=== PATIENT | female | born 1980 | race Caucasian/White ===

== ENCOUNTER 2018-03-29 03:21 | Emergency (ER) | payer SELFPAY ==
[~2018-03-29] VITALS: Ht 167.6 cm; Wt 61.2 kg
--- NOTE | 2018-03-29 03:57 | ED Headache ---
General Chief Complaint: General Problems/Pain Stated Complaint: POSS SINUS INFECTION,POSS UTI Nursing Triage Note: PT AMB TO ROOM #5 W/O DIFFICULTY. A&OX4. C/O HEADACHE. STATES "I THINK I HAVE A UTI, BECAUSE I CAN'T PEE WHEN I NEED TO PEE." REPORTS SHE WAS SEEN IN AN ED APPROX 1WK AGO WHERE SHE WAS DIAGNOSED WITH AN SINUS INFECTION AND PRESCRIBED AMOXICILLIN. PT REPORTS SHE IS TAKING HER MEDICATION PRESCRIBED. Nursing Sepsis Screen: No Definite Risk Source: patient, other Exam Limitations: no limitations History of Present Illness Date Seen by Provider: Mar 29, 2018 Time Seen by Provider: 03:44 Initial Comments Patient presents to the ER by private conveyance with 2 complaints of painful urination and for the past for 5 days she's had a left-sided headache that comes and goes and is bad enough that it prompted her to go to the ER 4 days ago in [place], [place]. She had a complete workup with labs and CT scan which they discovered she had what looked like a sinus infection. She's had a little bit of nasal discharge. She's not been drinking very much as she's had some nausea with her headache pain. She's been able to take the Lortab but she says she doesn't want to try taking ibuprofen as she's not sure she build keep it down. She received some Zofran from the ER and said that that helped was not sent home with any. She's been on amoxicillin that she says cost $80 so was probably Augmentin day number 4 now. Allergies and Home Medications Allergies Coded Allergies: No Known Drug Allergies (Unverified , 03/29/18) Patient Home Medication List Home Medication List Reviewed: Yes Review of Systems Review of Systems Constitutional: No chills, No diaphoresis, No fever, No malaise Eyes: Denies Blindness, Denies Blurred Vision; Photophobia Ears, Nose, Mouth, Throat: denies ear pain, denies ear discharge Respiratory: No cough, No short of breath Cardiovascular: No chest pain, No edema Gastrointestinal: No abdominal pain, No diarrhea, No nausea Genitourinary: No see HPI, No discharge; dysuria Past Jyjfmjj-Vmibvd-Wzjpxq Hx Patient Social History Alcohol Use: Denies Use Recreational Drug Use: No Smoking Status: Current Everyday Smoker Type Used: Cigarettes (1 ppd) Recent Foreign Travel: No Contact w/Someone Who Travel: No Recent Infectious Disease Expo: No Physical Exam Vital Signs Vital Signs - First Documented 03/29/18 03:30 Temp 98.4 Pulse 74 Resp 18 B/P (MAP) 138/95 (109) Pulse Ox 100 O2 Delivery Room Air Capillary Refill : Less Than 3 Seconds Height, Weight, BMI Height: 5'6.00" Weight: 135lbs. oz. 61.442849wj; BMI Method:Stated General Appearance: WD/WN, mild distress HEENT: PERRL/EOMI, pharynx normal, TM abnormal (R), TM abnormal (L) (bilateral clear mucoid effusion), other (mild nasal congestion without rhinorrhea) Neck: non-tender, full range of motion, normal inspection Cardiovascular: normal peripheral pulses, regular rate, rhythm, no edema Respiratory: chest non-tender, lungs clear, normal breath sounds, no respiratory distress, no accessory muscle use Psychiatric: alert, oriented x 3 Crainal Nerves: normal hearing, normal speech, PERRL Coordination/Gait: normal gait Skin: normal color, warm/dry Progress/Results/Core Measures Results/Orders Lab Results Laboratory Tests Test 03/29/18 04:30 Range/Units Urine Color YELLOW Urine Clarity CLEAR Urine pH 7 5-9 Urine Specific [place] 1.010 L 1.016-1.022 Urine Protein NEGATIVE NEGATIVE Urine Glucose (UA) NEGATIVE NEGATIVE Urine Ketones NEGATIVE NEGATIVE Urine Nitrite NEGATIVE NEGATIVE Urine Bilirubin NEGATIVE NEGATIVE Urine Urobilinogen NORMAL NORMAL MG/DL Urine Leukocyte Esterase 1+ H NEGATIVE Urine RBC (Auto) NEGATIVE NEGATIVE Urine RBC NONE /HPF Urine WBC 0-2 /HPF Urine Squamous Epithelial Cells 25-50 H /HPF Urine Crystals NONE /LPF Urine Bacteria NEGATIVE /HPF Urine Casts NONE /LPF Urine Mucus NEGATIVE /LPF Urine Yeast FEW H /HPF Urine Culture Indicated YES My Orders Orders - ALFRED SPANGLER Ondansetron Oral Dissolve Tab (Zofran (03/29/18 04:00) Ketorolac Injection (Toradol Injection) (03/29/18 04:00) Ua Culture If Indicated (03/29/18 03:51) Urine Culture (03/29/18 04:30) Medications Given in ED Current Medications Medications Dose Ordered Sig/Anneliese Route Start Time Stop Time Status Last Admin Dose Admin Ketorolac Tromethamine 30 mg ONCE ONCE IM 03/29/18 04:00 03/29/18 04:01 DC 03/29/18 03:59 30 MG Ondansetron HCl 4 mg ONCE ONCE PO 03/29/18 04:00 03/29/18 04:01 DC 03/29/18 03:58 4 MG Vital Signs/I&O 03/29/18 03:30 Temp 98.4 Pulse 74 Resp 18 B/P (MAP) 138/95 (109) Pulse Ox 100 O2 Delivery Room Air Blood Pressure Mean: 109 Progress Progress Note : Time: 03:56 Progress Note We'll obtain a bedside , urinalysis and encourage her to continue taking the Augmentin and we'll give her some Toradol and Zofran for her symptoms. We'll make sure she goes home with some Zofran. We have encouraged her to increase her fluid intake significantly. Departure Impression Primary Impression: Sinus headache Additional Impressions: Nausea Vaginal yeast infection Disposition: 01 HOME, SELF-CARE Condition: Improved Departure-Patient Inst. Decision time for Depature: 04:56 Referrals: NO,LOCAL PHYSICIAN (PCP/Family) Primary Care Physician Patient Instructions: LOCAL PHYSICIAN LIST, Sinus Headache (DC) Add. Discharge Instructions: Drink a lot of fluids. Sports drinks water or juice but no caffeine. Continue to take your antibiotics. Use the Zofran 1 tablet under the tongue as necessary every 6 hours for nausea or vomiting. Use Tylenol 1000 mg and/or ibuprofen 800 mg every 8 hours each as needed for headache pain. syruper the miconazole vaginal try she is 3, 5 or 7 day kit. Establish care with a primary care provider and follow up especially if your symptoms are not improving in the next week. All discharge instructions reviewed with patient and/or family. Voiced understanding. Scripts Ondansetron (Ondansetron Odt) 4 Mg Tab.rapdis 4 MG PO Q6H PRN for NAUSEA/VOMITING, #8 TAB 0 Refills Prov: ALFRED SPANGLER 03/29/18 Work/School Note: Work Release Form Date Seen in the Emergency Department: Mar 29, 2018 Return to Work: Mar 31, 2018 Restrictions: No Restrictions ALFRED SPANGLER Mar 29, 2018 03:57
[2018-03-29] MEDS ORDERED: KETOROLAC 30 MG/ML VIAL IM ONE (04:00)
[2018-03-29] MEDS ORDERED: ONDANSETRON 4 MG (ZOFRAN) ORAL DISSOLVE TAB PO ONE (04:00)
[2018-03-29 04:37] LABS: BILIRUBIN,URINE NEGATIVE (NEGATIVE); CLARITY,URINE CLEAR; COLOR,URINE YELLOW; GLUCOSE, URINE (UA) NEGATIVE (NEGATIVE); KETONES,URINE NEGATIVE (NEGATIVE); LEUKOCYTE ESTERASE ,URINE 1+ (NEGATIVE); NITRITE,URINE NEGATIVE (NEGATIVE); PH,URINE 7 (5-9); PROTEIN,URINE NEGATIVE (NEGATIVE); UROBILINOGEN,URINE NORMAL (NORMAL)
[2018-03-29 04:46] LABS: BACTERIA,URINE NEGATIVE /HPF; SQUAMOUS EPITHELIAL CELL,UR 25-50 /HPF; WBC,URINE 0-2 /HPF
[2018-03-29 04:47] LABS: YEAST,URINE FEW /HPF
[2018-03-29] MEDS ORDERED: ONDA4TAB11 PO (04:59)
[2018-03-29 05:04] VITALS: BP 138/95
== END 2018-03-29 05:05 | disposition home or self-care (01) ==
LOC: ER 03:26
DX: R51 Headache (principal); B37.3 Candidiasis of vulva and vagina; F17.210 Nicotine dependence, cigarettes, uncomplicated
CPT/HCPCS: 81000; 87088; 99283

== ENCOUNTER 2018-04-17 08:31 | Emergency (ER) | payer SELFPAY ==
[~2018-04-17] VITALS: Ht 152.4 cm; Wt 59.0 kg
[~2018-04-17 08:31] MED LIST: ONDA4TAB11 PO
[2018-04-17] MEDS ORDERED: KETOROLAC 30 MG/ML VIAL IVP STA (11:09)
[2018-04-17] MEDS ORDERED: NS IV 1000 ML 1,000 ML IV ONE (11:09)
[2018-04-17] MEDS ORDERED: ONDANSETRON 4 MG/2 ML (SDV) Z0FRAN IVP ONE (11:15)
[2018-04-17] MEDS ORDERED: ONDANSETRON 4 MG (ZOFRAN) ORAL DISSOLVE TAB SL STA (11:40)
[2018-04-17] MEDS ORDERED: KETOROLAC 60 MG/2 ML VIAL IM STA (11:40)
--- NOTE | 2018-04-17 12:01 | ED GU-Female ---
General Chief Complaint: Abdominal/GI Problems Stated Complaint: HEADACHE,VOMITING Nursing Triage Note: PT AMB TO TRIAGE W/O DIFFICULTY. A&X4. C/O HEADAHCE, NAUSEA, VOMITING, FEVER, BODY ACHES, AND GENERAL MALAISE FOR APPROX 5 DAYS. REPORTS SHE BELIEVES SHE HAS A UTI DT BURNING UPON URINATION. Nursing Sepsis Screen: No Definite Risk Source: patient, other (significant other) Exam Limitations: no limitations History of Present Illness Date Seen by Provider: Apr 17, 2018 Time Seen by Provider: 11:25 Initial Comments 38-year-old female patient presents with complaints of headache, nausea, vomiting, fever, generalized body aches, malaise for 5 days. Patient denies taking her temperature, states she felt like she was "hot". Patient reports being seen in the emergency department at [facility] 3 weeks ago and was diagnosed with a UTI and yeast infection. Patient states she did not take the medicine for the yeast infection for approximately one to 2 weeks after being seen. Patient does report a lengthy history for IV drug use. Timing/Duration: getting worse, other (5 day onset) Severity/Quality: aching, burning, cramping Location: urethral Radiation: suprapubic Activities at Onset: none Prior Genitourinary Problems: similar symptoms Sexual [place] History: less than 2 months ago, single partner Modifying Factors: Worsens With Eating, Worsens With Urinating Allergies and Home Medications Allergies Coded Allergies: No Known Drug Allergies (Unverified , 03/29/18) Home Medications Cephalexin 500 Mg Capsule, 500 MG PO TID Prescribed by: THANH ESCALERA on 04/17/18 141 Ondansetron 4 Mg Tab.rapdis, 4 MG PO Q6H PRN for NAUSEA/VOMITING Prescribed by: ALFRED SPANGLER on 03/29/18 0459 Phenazopyridine HCl 100 Mg Tablet, 1-2 TAB PO TID PRN for pain Prescribed by: THANH ESCALERA on 04/17/18 141 Promethazine HCl 25 Mg Supp.rect, 25 MG RC QID Prescribed by: THANH ESCALERA on 04/17/18 141 Patient Home Medication List Home Medication List Reviewed: Yes Review of Systems Review of Systems Constitutional: see HPI, chills, fever (subjective fever), malaise EENTM: no symptoms reported Respiratory: No cough, No phlegm, No short of breath, No wheezing Cardiovascular: No chest pain, No palpitations Gastrointestinal: see HPI, abdominal pain (suprapubic abdominal pain); No constipation, No diarrhea; loss of appetite, nausea, vomiting Genitourinary: see HPI, burning, dysuria, frequency, pain (suprapubic abdominal pain), other ((+) hesitency. Significant other reports patient will fill like she has to go the bathroom "really bad" and only be able to urinate a small amount.) : No Musculoskeletal: see HPI, other (generalized body aches) Skin: no symptoms reported Psychiatric/Neurological: See HPI, Headache All Other Systemes Reviewed Negative Unless Noted: Yes (Negative excepted noted.) Past Dtxplmm-Dmxvjd-Cmoodn Hx Past Med/Social Hx: Reviewed Nursing Past Med/Soc Hx Patient Social History Alcohol Use: Denies Use Recreational Drug Use: No (HX: IV METH ) Smoking Status: Current Everyday Smoker Type Used: Cigarettes 2nd Hand Smoke Exposure: Yes Recent Foreign Travel: No Contact w/Someone Who Travel: No Recent Infectious Disease Expo: No Recent Hopitalizations: No Seasonal Allergies Seasonal Allergies: No Past Medical History Surgeries: Yes Tubal Ligation Respiratory: No Cardiac: No Neurological: No : No Last Menstrual Period: Apr 14, 2018 Genitourinary: No Gastrointestinal: No Musculoskeletal: No Endocrine: No HEENT: No Cancer: No Psychosocial: No Integumentary: No Blood Disorders: No Family Medical History Reviewed Nursing Family Hx No Pertinent Family Hx Physical Exam Vital Signs Vital Signs - First Documented 04/17/18 04/17/18 10:37 14:28 Temp 98.1 Pulse 87 Resp 18 B/P (MAP) 112/74 (87) Pulse Ox 100 O2 Delivery Room Air Capillary Refill : Less Than 3 Seconds Height, Weight, BMI Height: 5'0" Weight: 130lbs. oz. 58.479718oz; BMI Method:Stated General Appearance: WD/WN, no apparent distress HEENT: other (patient refuses to move the pillow that she has covering her face.) Neck: non-tender, supple, normal inspection Cardiovascular: normal peripheral pulses, regular rate, rhythm, no edema, no murmur Respiratory: lungs clear, normal breath sounds, no respiratory distress, no accessory muscle use Gastrointestinal: normal bowel sounds, non tender (unable to reproduce tenderness on exam), soft, no organomegaly; No distended, No guarding, No rebound Back: normal inspection, no CVA tenderness Extremities: no pedal edema, normal capillary refill Neurologic/Psychiatric: alert, normal mood/affect, oriented x 3 (oriented to person, place, situation, and time. ) Skin: normal color, warm/dry, other (numerous puncture sites, scarring, and non -acute ecchymosis overlying the veins of the BUE consistent with h/o IV drug use.) Progress/Results/Core Measures Suspected Sepsis Recent Fever Within 48 Hours: Yes Infection Criteria Present: Suspected New Infection New/Unexplained Altered Menta: No Sepsis Screen: No Definite Risk SIRS Temperature: Pulse: 87 Respiratory Rate: 18 Blood Pressure 112 /74 Mean: 87 Results/Orders Lab Results Laboratory Tests Test 04/17/18 12:49 Range/Units Urine Color YELLOW Urine Clarity VERY CLOUDY H Urine pH 7 5-9 Urine Specific [place] 1.010 L 1.016-1.022 Urine Protein 2+ H NEGATIVE Urine Glucose (UA) NEGATIVE NEGATIVE Urine Ketones NEGATIVE NEGATIVE Urine Nitrite NEGATIVE NEGATIVE Urine Bilirubin NEGATIVE NEGATIVE Urine Urobilinogen NORMAL NORMAL MG/DL Urine Leukocyte Esterase 3+ H NEGATIVE Urine RBC (Auto) 5+ H NEGATIVE Urine RBC NONE /HPF Urine WBC TNTC H /HPF Urine Crystals PRESENT H /LPF Urine Amorphous Sediment MOD LAUREN URATES H /LPF Urine Bacteria LARGE H /HPF Urine Casts NONE /LPF Urine Mucus NEGATIVE /LPF Urine Culture Indicated YES Urine Opiates Screen NEGATIVE NEGATIVE Urine Oxycodone Screen NEGATIVE NEGATIVE Urine Methadone Screen NEGATIVE NEGATIVE Urine Propoxyphene Screen NEGATIVE NEGATIVE Urine Barbiturates Screen NEGATIVE NEGATIVE Ur Tricyclic Antidepressants Screen NEGATIVE NEGATIVE Urine Phencyclidine Screen NEGATIVE NEGATIVE Urine Amphetamines Screen POSITIVE H NEGATIVE Urine Methamphetamines Screen NEGATIVE NEGATIVE Urine Benzodiazepines Screen NEGATIVE NEGATIVE Urine Cocaine Screen NEGATIVE NEGATIVE Urine Cannabinoids Screen POSITIVE H NEGATIVE Micro Results Microbiology 04/17/18 Influenza Types A,B Antigen ([place]) - Final, Complete My Orders Orders - THANH ESCALERA Saline Lock/Iv-Start (04/17/18 11:09) Urine Bedside (04/17/18 11:09) Drug Screen Stat (Urine) (04/17/18 11:09) Ua Culture If Indicated (04/17/18 11:09) Influenza A And B Antigens (04/17/18 11:09) Ondansetron Injection (Zofran Injectio (04/17/18 11:15) Ketorolac Injection (Toradol Injection) (04/17/18 11:09) Ns Iv 1000 Ml (Sodium Chloride 0.9%) (04/17/18 11:09) Ketorolac Injection (Toradol Injection) (04/17/18 11:40) Ondansetron Oral Dissolve Tab (Zofran (04/17/18 11:40) Urine Culture (04/17/18 12:49) Ceftriaxone For Iv Use (Rocephin For I (04/17/18 13:45) Lidocaine 1% Inj 20 Ml (Xylocaine 1% Inj (04/17/18 13:45) Acetaminophen Tablet (Tylenol Tablet) (04/17/18 13:32) Medications Given in ED Current Medications Medications Dose Ordered Sig/Anneliese Route Start Time Stop Time Status Last Admin Dose Admin Ceftriaxone Sodium 1,000 mg ONCE ONCE IM 04/17/18 13:45 04/17/18 13:46 DC 04/17/18 13:48 1,000 MG Lidocaine HCl 2.1 ml ONCE ONCE INJ 04/17/18 13:45 04/17/18 13:46 DC 04/17/18 13:48 2.1 ML Vital Signs/I&O 04/17/18 04/17/18 10:37 14:28 Temp 98.1 Pulse 87 77 Resp 18 18 B/P (MAP) 112/74 (87) 106/65 (79) Pulse Ox 100 100 O2 Delivery Room Air Room Air Capillary Refill : Less Than 3 Seconds Blood Pressure Mean: 87 Departure Communication (Admissions) Patient seen and evaluated. Due to patient's history of methamphetamine IV use , we are unable to establish an IV. This was discussed with the patient. Patient does not want to be stuck anymore for an IV access. Will give patient a milligrams Zofran sublingual, Toradol 60 mg IM, and check urinalysis. 1400 Lab findings discussed with the patient. Patient reports overall feeling much better. We will plan for discharge to home after giving patient one gram Rocephin IM and Tylenol extra strength 1000 mg 1 dose orally. Patient is to follow-up with the primary care provider of her choice for recheck as an outpatient and call Thursday morning to schedule a follow-up appointment. Impression Primary Impression: Urinary tract infection Disposition: HOME, SELF-CARE Condition: Improved Departure-Patient Inst. Decision time for Depature: 14:10 Referrals: NO,LOCAL PHYSICIAN (PCP/Family) Primary Care Physician Patient Instructions: Urinary Tract Infection, Adult (DC) Add. Discharge Instructions: All discharge instructions reviewed with patient and/or family. Voiced understanding. Medications as directed. Drink plenty of fluids. Follow-up with the practitioner of your choice for recheck this week, call Thursday for an appointment time. Return to the emergency department for worsened symptoms or any other concerns. Scripts Promethazine HCl (Phenergan) 25 Mg Supp.rect 25 MG RC QID, #10 SUPP.RECT 0 Refills Prov: THANH ESCALERA 04/17/18 Phenazopyridine HCl (Pyridium) 100 Mg Tablet 1-2 TAB PO TID PRN for pain, #14 TAB 1 Refill Prov: THANH ESCALERA 04/17/18 Cephalexin (Cephalexin) 500 Mg Capsule 500 MG PO TID, #21 CAP 0 Refills Prov: THANH ESCALERA 04/17/18 Work/School Note: Local Medical Staff Listing THANH ESCALERA Apr 17, 2018 12:01
[2018-04-17 12:58] LABS: BILIRUBIN,URINE NEGATIVE (NEGATIVE); CLARITY,URINE VERY CLOUDY; COLOR,URINE YELLOW; GLUCOSE, URINE (UA) NEGATIVE (NEGATIVE); KETONES,URINE NEGATIVE (NEGATIVE); LEUKOCYTE ESTERASE ,URINE 3+ (NEGATIVE); NITRITE,URINE NEGATIVE (NEGATIVE); PH,URINE 7 (5-9); PROTEIN,URINE 2+ (NEGATIVE); UROBILINOGEN,URINE NORMAL (NORMAL)
[2018-04-17 13:07] LABS: BACTERIA,URINE LARGE /HPF; WBC,URINE TNTC /HPF
[2018-04-17 13:08] LABS: AMORPHOUS SEDIMENT,UR MOD AMOR URATES /LPF
[2018-04-17 13:23] LABS: AMPHETAMINE SCREEN, URINE POSITIVE (NEGATIVE); BARBITURATE SCREEN URINE NEGATIVE (NEGATIVE); BENZODIAZEPINES SCREEN URINE NEGATIVE (NEGATIVE); CANNABINOID SCREEN, URINE POSITIVE (NEGATIVE); COCAINE SCREEN URINE NEGATIVE (NEGATIVE); METHADONE STAT NEGATIVE (NEGATIVE); METHAMPHETAMINE SCREEN URINE S NEGATIVE (NEGATIVE); OPIATE SCREEN URINE NEGATIVE (NEGATIVE); OXYCODONE STAT NEGATIVE (NEGATIVE); PROPOXYPHENE STAT NEGATIVE (NEGATIVE); TRICYCLIC ANTIDEPRESSANTS SCRE NEGATIVE (NEGATIVE)
[2018-04-17] MEDS ORDERED: ACETAMINOPHEN 500 MG TAB (TYLENOL) PO STA (13:32)
[2018-04-17] MEDS ORDERED: cefTRIAXone 1 GM/10 ML for IV (ROCEPHIN) IM ONE (13:45)
[2018-04-17] MEDS ORDERED: LIDOCAINE 1% INJ 20 ML 20 ML VIAL INJ ONE (13:45)
[2018-04-17] MEDS ORDERED: PHEN-639 PO (14:14)
[2018-04-17] MEDS ORDERED: CEPH500C PO (14:14)
[2018-04-17] MEDS ORDERED: PROM25SU43 RC (14:14)
[2018-04-17 14:28] VITALS: BP 106/65
== END 2018-04-17 14:30 | disposition home or self-care (01) ==
LOC: EDUNIT# 08:31 → ER 08:32
DX: N39.0 Urinary tract infection, site not specified (principal); F17.210 Nicotine dependence, cigarettes, uncomplicated; Z98.51 Tubal ligation status
CPT/HCPCS: 80306; 81000; 84703; 87077; 87088; 87186; 87804

== ENCOUNTER 2020-01-12 13:06 | Emergency (ER) | payer SELFPAY ==
[~2020-01-12] VITALS: Ht 152.4 cm; Wt 61.2 kg
[~2020-01-12 13:06] MED LIST changes: +CEPH500C PO; +PHEN-639 PO; +PROM25SU43 RC
[2020-01-12] MEDS ORDERED: KETOROLAC 30 MG/ML VIAL IVP STA (13:17)
[2020-01-12] MEDS ORDERED: LACTATED RINGERS 1,000 ML IV ONE (13:17)
--- NOTE | 2020-01-12 13:23 | ED Back Pain ---
General Stated Complaint: LOWER BACK PAIN Source of Information: Patient History of Present Illness Date Seen by Provider: Jan 12, 2020 Time Seen by Provider: 13:13 Initial Comments PT ARRIVES VIA POV FROM HOME C/O RIGHT FLANK PAIN, RADIATING TO RIGHT MID AND LOWER ABDOMEN--BEGAN A FEW DAYS AGO HAS HISTORY OF UTI'S/KIDNEY INFECTIONS AND KIDNEY STONES, AND THIS FEELS THE SAME NO FEVER NO NAUSEA/VOMITING NO PROBLEMS URINATING HAS NOT TAKEN ANYTHING FOR PAIN LMP--1 1/2 WEEKS AGO. NORMAL. S/P BTL Other Comments PCP: NONE Allergies and Home Medications Allergies Coded Allergies: No Known Drug Allergies (Unverified , 03/29/18) Home Medications Cephalexin 500 Mg Capsule, 500 MG PO TID Prescribed by: THANH ESCALERA on 04/17/18 141 Hyoscyamine Sulfate 0.125 Mg Tab.subl, 0.25 MG SL Q4H Prescribed by: KAUSHIK GONZALEZ on 01/12/20 141 Ondansetron 4 Mg Tab.rapdis, 4 MG PO Q6H PRN for NAUSEA/VOMITING Prescribed by: ALFRED SPANGLER on 03/29/18 0459 Ondansetron 4 Mg Tab.rapdis, 4 MG PO Q4H Prescribed by: KAUSHIK GONZALEZ on 01/12/20 1415 Pantoprazole Sodium 40 Mg Tablet.dr, 40 MG PO DAILY Prescribed by: KAUSHIK GONZALEZ on 01/12/20 141 Phenazopyridine HCl 100 Mg Tablet, 1-2 TAB PO TID PRN for pain Prescribed by: THANH ESCALERA on 04/17/18 141 Promethazine HCl 25 Mg Supp.rect, 25 MG RC QID Prescribed by: THANH ESCALERA on 04/17/18 141 Tramadol HCl 50 Mg Tablet, 50 MG PO Q4H Prescribed by: KAUSHIK GONZALEZ on 01/12/20 1415 Patient Home Medication List Home Medication List Reviewed: Yes Review of Systems Constitutional: no symptoms reported Respiratory: no symptoms reported Cardiovascular: no symptoms reported Gastrointestinal: see HPI, abdominal pain; No nausea, No vomiting Genitourinary: no symptoms reported LMP: Jan 02, 2020 Control/STD Prophylaxis: Other (BTL) Musculoskeletal: see HPI, back pain Skin: no symptoms reported Psychiatric/Neurological: No Symptoms Reported Past Nmlmxal-Pnzuaz-Cllygr Hx Past Med/Social Hx: Reviewed and Corrections made Patient Social History Alcohol Use: Denies Use Recreational Drug Use: Yes (+IV METH USE) Drug of Choice: + ADRIENNE METH USE Smoking Status: Current Everyday Smoker (1 PPD) Type Used: Cigarettes (1 PDD) 2nd Hand Smoke Exposure: Yes Recent Foreign Travel: No Contact w/Someone Who Travel: No Recent Hopitalizations: No Seasonal Allergies Seasonal Allergies: No Past Medical History Surgeries: Yes Tubal Ligation Respiratory: No Cardiac: No Neurological: No : No 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 oz. 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 Skin: Normal Color, Warm/Dry; No Rash; Tattoos/Piercings (EXTENSIVE TATTOOS) Progress/Results/Core Measures Results/Orders Lab Results Laboratory Tests Test 01/12/20 13:24 01/12/20 13:56 Range/Units Urine Color YELLOW Urine Clarity SL CLOUDY Urine pH 6.0 5-9 Urine Specific Williams >=1.030 1.016-1.022 Urine Protein NEGATIVE NEGATIVE Urine Glucose (UA) NEGATIVE NEGATIVE Urine Ketones NEGATIVE NEGATIVE Urine Nitrite NEGATIVE NEGATIVE Urine Bilirubin NEGATIVE NEGATIVE Urine Urobilinogen 0.2 < = 1.0 MG/DL Urine Leukocyte Esterase NEGATIVE NEGATIVE Urine RBC (Auto) NEGATIVE NEGATIVE Urine RBC RARE /HPF Urine WBC 0-2 /HPF Urine Squamous Epithelial Cells 10-25 H /HPF Urine Crystals PRESENT H /LPF Urine Amorphous Sediment FEW LAUREN URATES H /LPF Urine Bacteria FEW H /HPF Urine Casts NONE /LPF Urine Mucus NEGATIVE /LPF Urine Culture Indicated NO Urine Opiates Screen NEGATIVE NEGATIVE Urine Oxycodone Screen NEGATIVE NEGATIVE Urine Methadone Screen NEGATIVE NEGATIVE Urine Propoxyphene Screen NEGATIVE NEGATIVE Urine Barbiturates Screen NEGATIVE NEGATIVE Ur Tricyclic Antidepressants Screen NEGATIVE NEGATIVE Urine Phencyclidine Screen NEGATIVE NEGATIVE Urine Amphetamines Screen POSITIVE H NEGATIVE Urine Methamphetamines Screen POSITIVE H NEGATIVE Urine Benzodiazepines Screen POSITIVE H NEGATIVE Urine Cocaine Screen NEGATIVE NEGATIVE Urine Cannabinoids Screen POSITIVE H NEGATIVE White Blood Count 11.0 4.3-11.0 10^3/uL Red Blood Count 4.26 L 4.35-5.85 10^6/uL Hemoglobin 11.8 11.5-16.0 G/DL Hematocrit 37 35-52 % Mean Corpuscular Volume 88 80-99 FL Mean Corpuscular Hemoglobin 28 25-34 PG Mean Corpuscular Hemoglobin Concent 32 32-36 G/DL Red Cell Distribution Width 15.9 H 10.0-14.5 % Platelet Count 548 H 130-400 10^3/uL Mean Platelet Volume 8.7 7.4-10.4 FL Neutrophils (%) (Auto) 70 42-75 % Lymphocytes (%) (Auto) 23 12-44 % Monocytes (%) (Auto) 5 0-12 % Eosinophils (%) (Auto) 2 0-10 % Basophils (%) (Auto) 1 0-10 % Neutrophils # (Auto) 7.6 1.8-7.8 X 10^3 Lymphocytes # (Auto) 2.5 1.0-4.0 X 10^3 Monocytes # (Auto) 0.5 0.0-1.0 X 10^3 Eosinophils # (Auto) 0.2 0.0-0.3 10^3/uL Basophils # (Auto) 0.1 0.0-0.1 10^3/uL Sodium Level 140 135-145 MMOL/L Potassium Level 3.9 3.6-5.0 MMOL/L Chloride Level 105 98-107 MMOL/L Carbon Dioxide Level 27 21-32 MMOL/L Anion Gap 8 5-14 MMOL/L Blood Urea Nitrogen 20 H 7-18 MG/DL Creatinine 0.78 0.60-1.30 MG/DL Estimat Glomerular Filtration Rate > 60 BUN/Creatinine Ratio 26 Glucose Level 78 70-105 MG/DL Calcium Level 9.5 8.5-10.1 MG/DL Corrected Calcium 9.4 8.5-10.1 MG/DL Total Bilirubin 0.2 0.1-1.0 MG/DL Aspartate Amino Transf (AST/SGOT) 16 5-34 U/L Alanine Aminotransferase (ALT/SGPT) 7 0-55 U/L Alkaline Phosphatase 76 40-136 U/L Total Protein 7.5 6.4-8.2 GM/DL Albumin 4.1 3.2-4.5 GM/DL Serum Test, Qualitative NEGATIVE NEGATIVE My Orders Orders - KAUSHIK GONZALEZ DO Ed Iv/Invasive Line Start (01/12/20 13:17) Ct Abd/Pelvis Wo(Kidney Stone) (01/12/20 13:17) Abdomen/Kub 1view (01/12/20 13:17) Cbc With Automated Diff (01/12/20 13:17) Comprehensive Metabolic Panel (01/12/20 13:17) Drug Screen Stat (Urine) (01/12/20 13:17) Hcg,Qualitative Serum (01/12/20 13:17) Ua Culture If Indicated (01/12/20 13:17) Ed Iv/Invasive Line Start (01/12/20 13:17) Lactated Ringers (Lr 1000 Ml Iv Solution (01/12/20 13:17) Ketorolac Injection (Toradol Injection) (01/12/20 13:17) Medications Given in ED Current Medications Medications Dose Ordered Sig/Anneliese Route Start Time Stop Time Status Last Admin Dose Admin Lactated Ringer's 1,000 ml @ 0 mls/hr Q0M ONCE IV 01/12/20 13:17 01/12/20 13:19 DC 01/12/20 13:55 1,000 MLS/HR Vital Signs/I&O 01/12/20 01/12/20 13:10 14:17 Temp 36.6 Pulse 86 73 Resp 16 14 B/P (MAP) 139/92 (108) 127/79 (95) Pulse Ox 100 100 O2 Delivery Room Air Room Air Progress Progress Note : Progress Note GIVEN IV FLUIDS AND TORADOL--PAIN RELIEVED AND PT SLEPT FOR REMAINDER OF ER STAY Diagnostic Imaging Comments CT ABDOMEN/PELVIS--PER RADIOLOGIST REPORT AT 1403 FINDINGS: There are stones within the gallbladder lumen. The gallbladder is nondistended and showed no pericholecystic edema. The bile ducts are not dilated. Spleen, adrenals, and pancreas are nonacute. There are no radiopaque urinary tract stones and there is no hydroureteronephrosis. There is no bowel obstruction. No pericolonic or perienteric edema. While the appendix itself cannot convincingly identified, there is no right lower quadrant or pericecal inflammation to suggest underlying appendicitis. The uterus, adnexa, and urinary bladder appeared normal. No abscess, hematoma, or acute fluid collection. No aneurysm, adenopathy, or mass. IMPRESSION: Cholelithiasis, otherwise negative CT abdomen and pelvis ABDOMEN XRAY--PER RADIOLOGIST REPORT AT 1413 .FINDINGS: The bowel gas pattern appeared unremarkable. There is perhaps borderline elevated colonic fecal load in the appropriate scenario mild degree of constipation could not be excluded. This is not grossly pathologic. No suspicious radiopacities. No radiographic findings of organomegaly or mass effect. IMPRESSION: Borderline constipation. No convincing evidence of abnormality. Reviewed: Reviewed by Me Departure Impression Primary Impression: Cholelithiasis Additional Impression: Illicit drug use Disposition: HOME, SELF-CARE Condition: Improved Departure-Patient Inst. Referrals: EMANUEL AMES,LOCAL PHYSICIAN (PCP) Primary Care Physician Patient Instructions: Gallstones (DC) Add. Discharge Instructions: LOTS OF CLEAR LIQUIDS BLAND DIET--NO SPICY, GREASY/HIGH FAT OR ACIDIC FOOD OR DRINKS FOLLOW UP WITH DR. AMES OR SURGEON OF CHOICE IN THE NEXT WEEK FOR FURTHER CARE, RETURN TO ER IF WORSE Scripts Tramadol HCl (Ultram) 50 Mg Tablet 50 MG PO Q4H for Pain, #20 TAB Prov: CARLOSKAUSHIK K DO 01/12/20 Ondansetron (Ondansetron Odt) 4 Mg Tab.rapdis 4 MG PO Q4H for Nausea/Vomiting, #10 TAB Prov: CARLOSKAUSHIK K DO 01/12/20 Hyoscyamine Sulfate (Levsin-Sl) 0.125 Mg Tab.subl 0.25 MG SL Q4H, #20 TAB Prov: CARLOSKAUSHIK K DO 01/12/20 Pantoprazole Sodium (Protonix) 40 Mg Tablet. 40 MG PO DAILY, #15 TAB Prov: KAUSHIK GONZALEZ DO 01/12/20 KAUSHIK GONZALEZ DO Jan 12, 2020 13:23
[2020-01-12 13:36] LABS: BILIRUBIN,URINE NEGATIVE (NEGATIVE); CLARITY,URINE SL CLOUDY; COLOR,URINE YELLOW; GLUCOSE, URINE (UA) NEGATIVE (NEGATIVE); KETONES,URINE NEGATIVE (NEGATIVE); LEUKOCYTE ESTERASE ,URINE NEGATIVE (NEGATIVE); NITRITE,URINE NEGATIVE (NEGATIVE); PROTEIN,URINE NEGATIVE (NEGATIVE)
--- NOTE | 2020-01-12 13:57 | Diagnostic Imaging Report ---
PROCEDURE: CT urinary tract, rule out kidney stone. TECHNIQUE: Multiple contiguous axial images were obtained through the abdomen and pelvis without the use of intravenous contrast. Auto Exposure Controls were utilized during the CT exam to meet ALARA standards for radiation dose reduction. INDICATION: Right-sided pain of three days' duration. FINDINGS: There are stones within the gallbladder lumen. The gallbladder is nondistended and showed no pericholecystic edema. The bile ducts are not dilated. Spleen, adrenals, and pancreas are nonacute. There are no radiopaque urinary tract stones and there is no hydroureteronephrosis. There is no bowel obstruction. No pericolonic or perienteric edema. While the appendix itself cannot convincingly identified, there is no right lower quadrant or pericecal inflammation to suggest underlying appendicitis. The uterus, adnexa, and urinary bladder appeared normal. No abscess, hematoma, or acute fluid collection. No aneurysm, adenopathy, or mass. IMPRESSION: Cholelithiasis, otherwise negative CT abdomen and pelvis. Dictated by: Dictated on workstation # [id number]
[2020-01-12 14:03] LABS: BASOPHILS # (AUTO) 0.1 10^3/uL (0.0-0.1); BASOPHILS % (AUTO) 1 % (0-10); EOSINOPHILS # (AUTO) 0.2 10^3/uL (0.0-0.3); EOSINOPHILS % (AUTO) 2 % (0-10); HEMATOCRIT 37 % (35-52); HEMOGLOBIN 11.8 G/DL (11.5-16.0); LYMPHOCYTES # (AUTO) 2.5 X 10^3 (1.0-4.0); LYMPHOCYTES % (AUTO) 23 % (12-44); MEAN CORPUSCULAR HEMOGLOBIN 28 PG (25-34); MEAN CORPUSCULAR HGB CONC 32 G/DL (32-36); MEAN CORPUSCULAR VOLUME 88 FL (80-99); MEAN PLATELET VOLUME 8.7 FL (7.4-10.4); MONOCYTES # (AUTO) 0.5 X 10^3 (0.0-1.0); MONOCYTES % (AUTO) 5 % (0-12); NEUTROPHILS # (AUTO) 7.6 X 10^3 (1.8-7.8); NEUTROPHILS % (AUTO) 70 % (42-75); PLATELET COUNT 548 10^3/uL (130-400)
[2020-01-12 14:05] LABS: AMORPHOUS SEDIMENT,UR FEW AMOR URATES /LPF; BACTERIA,URINE FEW /HPF; RBC,URINE RARE /HPF; WBC,URINE 0-2 /HPF
--- NOTE | 2020-01-12 14:06 | Diagnostic Imaging Report ---
INDICATION: Abdominal pain\ FINDINGS: The bowel gas pattern appeared unremarkable. There is perhaps borderline elevated colonic fecal load in the appropriate scenario mild degree of constipation could not be excluded. This is not grossly pathologic. No suspicious radiopacities. No radiographic findings of organomegaly or mass effect. IMPRESSION: Borderline constipation. No convincing evidence of abnormality. Dictated by: Dictated on workstation # [id number]
[2020-01-12 14:08] LABS: AMPHETAMINE SCREEN, URINE POSITIVE (NEGATIVE); BARBITURATE SCREEN URINE NEGATIVE (NEGATIVE); BENZODIAZEPINES SCREEN URINE POSITIVE (NEGATIVE); CANNABINOID SCREEN, URINE POSITIVE (NEGATIVE); COCAINE SCREEN URINE NEGATIVE (NEGATIVE); METHADONE STAT NEGATIVE (NEGATIVE); METHAMPHETAMINE SCREEN URINE S POSITIVE (NEGATIVE); OPIATE SCREEN URINE NEGATIVE (NEGATIVE); OXYCODONE STAT NEGATIVE (NEGATIVE); PROPOXYPHENE STAT NEGATIVE (NEGATIVE); TRICYCLIC ANTIDEPRESSANTS SCRE NEGATIVE (NEGATIVE)
[2020-01-12] MEDS ORDERED: PANT40TA2 PO (14:15)
[2020-01-12] MEDS ORDERED: ONDA4TAB11 PO (14:15)
[2020-01-12] MEDS ORDERED: HYOS0.1283 SL (14:15)
[2020-01-12] MEDS ORDERED: TRAM-42 PO (14:15)
[2020-01-12 14:17] VITALS: BP 127/79
--- NOTE | 2020-01-12 14:22 | NUR ---
PT RESTING ON COT, WARM BLANKET FOR COMFORT. PT REPORTS THAT PAIN HAS NOT CHANGED.
[2020-01-12 14:32] LABS: ALANINE AMINOTRANSFERASE 7 U/L (0-55); ALBUMIN 4.1 GM/DL (3.2-4.5); ALKALINE PHOSPHATASE 76 U/L (40-136); BILIRUBIN,TOTAL 0.2 MG/DL (0.1-1.0); BUN/CREATININE RATIO 26; CALCIUM 9.5 MG/DL (8.5-10.1); CARBON DIOXIDE 27 MMOL/L (21-32); CHLORIDE 105 MMOL/L (98-107); CREATININE SERUM 0.78 MG/DL (0.60-1.30); GFR ESTIMATED > 60; GLUCOSE 78 MG/DL (70-105); POTASSIUM 3.9 MMOL/L (3.6-5.0); SODIUM 140 MMOL/L (135-145); TOTAL PROTEIN 7.5 GM/DL (6.4-8.2)
[2020-01-12 14:40] VITALS: BP 158/81
== END 2020-01-12 14:40 | disposition home or self-care (01) ==
LOC: EDUNIT# 13:06 → ER 13:07
DX: K80.20 Calculus of gallbladder without cholecystitis without obstruction (principal); F15.90 Other stimulant use, unspecified, uncomplicated; F17.210 Nicotine dependence, cigarettes, uncomplicated
CPT/HCPCS: 36415; 74018; 74176; 80053; 80306; 81000; 84703; 85025

== ENCOUNTER 2020-09-02 14:00 | Emergency (ER) | payer SELFPAY ==
[~2020-09-02] VITALS: Ht 152 cm; Wt 63.5 kg
[~2020-09-02 14:00] MED LIST changes: +HYOS0.1283 SL; +PANT40TA2 PO; +TRAM-42 PO
[2020-09-02] MEDS ORDERED: fentaNYL INJ 100 MCG/2 ML AMP IVP ONE (14:30)
[2020-09-02] MEDS ORDERED: LACTATED RINGERS 1,000 ML IV ONE (14:30)
[2020-09-02] MEDS ORDERED: ONDANSETRON 4 MG/2 ML (SDV) Z0FRAN IVP ONE (14:30)
[2020-09-02 15:09] LABS: BASOPHILS % (AUTO) 0 % (0-10); EOSINOPHILS # (AUTO) 0.1 10^3/uL (0.0-0.3); EOSINOPHILS % (AUTO) 1 % (0-10); HEMATOCRIT 36 % (35-52); HEMOGLOBIN 11.2 g/dL (11.5-16.0); LYMPHOCYTES # (AUTO) 0.9 X 10^3 (1.0-4.0); LYMPHOCYTES % (AUTO) 11 % (12-44); MEAN CORPUSCULAR HEMOGLOBIN 26 pg (25-34); MEAN CORPUSCULAR HGB CONC 31 g/dL (32-36); MEAN CORPUSCULAR VOLUME 84 fL (80-99); MEAN PLATELET VOLUME 8.3 fL (9.0-12.2); MONOCYTES # (AUTO) 0.3 X 10^3 (0.0-1.0); MONOCYTES % (AUTO) 4 % (0-12); NEUTROPHILS # (AUTO) 6.5 X 10^3 (1.8-7.8); NEUTROPHILS % (AUTO) 83 % (42-75); PLATELET COUNT 423 10^3/uL (130-400); WHITE BLOOD COUNT 7.8 10^3/uL (4.3-11.0)
[2020-09-02 15:18] LABS: ALBUMIN 3.9 GM/DL (3.2-4.5); CHLORIDE 103 MMOL/L (98-107); POTASSIUM 3.5 MMOL/L (3.6-5.0); SODIUM 137 MMOL/L (135-145)
[2020-09-02 15:20] LABS: CALCIUM 8.5 MG/DL (8.5-10.1)
[2020-09-02 15:21] LABS: GLUCOSE 99 MG/DL (70-105); TOTAL PROTEIN 6.9 GM/DL (6.4-8.2)
[2020-09-02 15:21] LABS: BILIRUBIN,URINE NEGATIVE (NEGATIVE); CLARITY,URINE SL CLOUDY; COLOR,URINE YELLOW; GLUCOSE, URINE (UA) NEGATIVE (NEGATIVE); KETONES,URINE 1+ (NEGATIVE); LEUKOCYTE ESTERASE ,URINE TRACE (NEGATIVE); NITRITE,URINE POSITIVE (NEGATIVE); PROTEIN,URINE TRACE (NEGATIVE)
[2020-09-02 15:22] LABS: BILIRUBIN,TOTAL 0.5 MG/DL (0.1-1.0); CARBON DIOXIDE 21 MMOL/L (21-32)
[2020-09-02 15:24] LABS: ALKALINE PHOSPHATASE 62 U/L (40-136); CREATININE SERUM 0.75 MG/DL (0.60-1.30); GFR ESTIMATED > 60
[2020-09-02 15:25] LABS: BUN/CREATININE RATIO 17
[2020-09-02 15:27] LABS: ALANINE AMINOTRANSFERASE 8 U/L (0-55)
[2020-09-02 15:27] LABS: BACTERIA,URINE LARGE /HPF
[2020-09-02 15:28] LABS: LIPASE 7 U/L (8-78)
--- NOTE | 2020-09-02 16:01 | Diagnostic Imaging Report ---
Clinical indication: Patient with lower abdominal pain with nausea and vomiting that began last night. Patient states pain is also present to the lower back. Patient has increased pain with movement and walking. Patient has history of kidney stones. Exam: CT exam of the abdomen and pelvis was performed without IV or oral contrast using stone protocol. Coronal and sagittal reformatted images were created. Auto Exposure Controls were utilized during the CT exam to meet ALARA standards for radiation dose reduction. Comparison: CT scan of the abdomen and pelvis without contrast dated 01/12/2020. Findings: Visualized lung bases: There is minimal atelectasis involving both lung bases (right side more than the left). Liver: Unremarkable as visualized. Gallbladder: Cholelithiasis is again seen with no CT evidence of cholecystitis. Pancreas: Unremarkable as visualized. Spleen: Unremarkable as visualized. Adrenal glands: Unremarkable. Kidneys/ ureters: Unremarkable as visualized. Aorta: Unremarkable as visualized. Intraabdominal/ retroperitoneal contents: Unremarkable. Intestines: Unremarkable as visualized. Appendix: Appendix is not visualized on this exam and may be obscured by closely adjacent intestinal structures. There is no inflammation adjacent to the cecum seen. Bladder: Unremarkable as visualized. Pelvic organs: Unremarkable as visualized. Extra-abdominal/pelvis regions: Unremarkable. Abdominal wall: Unremarkable. Bones: There is lower lumbar spine facet arthropathy. There are small spurs involving the visualized lower thoracic and lumbar spine. Impression: 1: There is no CT evidence of acute abdominal or pelvic process. Of note, the appendix is not identified on this exam and cannot be evaluated. There is no inflammation adjacent to cecum. 2: Again seen is cholelithiasis. There is no CT evidence of cholecystitis. Dictated by: Dictated on workstation # [id number]
[2020-09-02] MEDS ORDERED: cefTRIAXone FOR IV USE 1,000 MG in WATER (STERILE) FOR INJECTION 10 ML IV ONE ×4 (16:30)
[2020-09-02] MEDS ORDERED: KETOROLAC 30 MG/ML VIAL IVP ONE (16:30)
[2020-09-02] MEDS ORDERED: PHEN-640 PO (16:32)
[2020-09-02] MEDS ORDERED: ONDA4TAB11 SL (16:32)
[2020-09-02] MEDS ORDERED: CEPH500T PO (16:32)
--- NOTE | 2020-09-02 16:32 | ED Abdominal Pain ---
General Chief Complaint: Abdominal/GI Problems Stated Complaint: LOWER BACK PAIN/VOMITING Nursing Triage Note: Patient to ER room 6 via wheelchair with c/o lower abdominal pain with nausea and vomiting that began last night. Patient states the pain is also present to the lower back. She has increased pain with movement and walking. Sepsis Screen: No Definite Risk Source of Information: Patient Exam Limitations: No Limitations History of Present Illness Date Seen by Provider: September 02, 2020 Time Seen by Provider: 14:10 Initial Comments 20-year-old woman presents to the emergency room with complaints of lower abdominal pain, nausea, and vomiting. Symptoms started last night. She denies fever. Pain seems to radiate toward the right lower back as well. Pain seems to be a little more prominent on the right. She reports decreased urination recently. She denies or vaginal symptoms. She reports a history of gallstones and kidney stones. She retains her gallbladder and appendix. Allergies and Home Medications Allergies Coded Allergies: No Known Drug Allergies (Unverified , 03/29/18) Home Medications Cephalexin 500 Mg Capsule, 500 MG PO TID Prescribed by: THANH ESCALERA on 04/17/18 1414 Cephalexin 500 Mg Tablet, 500 MG PO TID Prescribed by: BENITO RAE on 09/02/20 1632 Hyoscyamine Sulfate 0.125 Mg Tab.subl, 0.25 MG SL Q4H Prescribed by: KAUSHIK GONZALEZ on 01/12/20 1415 Ondansetron 4 Mg Tab.rapdis, 4 MG PO Q6H PRN for NAUSEA/VOMITING Prescribed by: ALFRED SPANGLER on 03/29/18 0459 Ondansetron 4 Mg Tab.rapdis, 4 MG PO Q4H Prescribed by: KAUSHIK GONZALEZ on 01/12/20 1415 Ondansetron 4 Mg Tab.rapdis, 4 MG SL Q4H PRN for NAUSEA/VOMITING Prescribed by: BENITO RAE on 09/02/20 1632 Pantoprazole Sodium 40 Mg Tablet.dr, 40 MG PO DAILY Prescribed by: KAUSHIK GONZALEZ on 01/12/20 1415 Phenazopyridine HCl 100 Mg Tablet, 1-2 TAB PO TID PRN for pain Prescribed by: THANH ESCALERA on 04/17/18 1414 Phenazopyridine HCl 200 Mg Tablet, 1 TAB PO TID PRN for PAIN-MODERATE (5-7) Prescribed by: BENITO RAE on 09/02/20 1632 Promethazine HCl 25 Mg Supp.rect, 25 MG RC QID Prescribed by: THANH ESCALERA on 04/17/18 1414 Tramadol HCl 50 Mg Tablet, 50 MG PO Q4H Prescribed by: KAUSHIK GONZALEZ on 01/12/20 1415 Patient Home Medication List Home Medication List Reviewed: Yes Review of Systems Review of Systems Constitutional: no symptoms reported EENTM: No Symptoms Reported Respiratory: No Symptoms Reported Cardiovascular: No Symptoms Reported Gastrointestinal: See HPI Genitourinary: See HPI Musculoskeletal: see HPI Skin: no symptoms reported Psychiatric/Neurological: No Symptoms Reported Endocrine: No Symptoms Reported Hematologic/Lymphatic: No Symptoms Reported Past Yzdmddl-Ncuhis-Lnbtia Hx Past Med/Social Hx: Reviewed Nursing Past Med/Soc Hx Patient Social History Alcohol Use: Denies Use Drug of Choice: + ADRIENNE METH USE Smoking Status: Current Everyday Smoker Type Used: Cigarettes 2nd Hand Smoke Exposure: Yes Recent Infectious Disease Expo: No Recent Hopitalizations: No Immunizations Up To Date Tetanus Booster (TDap): Unknown Seasonal Allergies Seasonal Allergies: No Past Medical History Surgeries: Yes Tubal Ligation Respiratory: No Cardiac: No Neurological: No : No Last Menstrual Period: August 29, 2020 Reproductive Disorders: No [employer] History: Tubal Ligation Genitourinary: Yes (PASSED STONES ON OWN-NO PROCEDURES) Kidney Infection, Bladder Infection, Kidney Stones Gastrointestinal: No Musculoskeletal: No Endocrine: No HEENT: No Cancer: No Psychosocial: No Integumentary: No Blood Disorders: No Family Medical History No Pertinent Family Hx Physical Exam Vital Signs Vital Signs - First Documented 09/02/20 14:10 Temp 37.0 Pulse 97 Resp 16 B/P (MAP) 128/88 (101) Pulse Ox 95 O2 Delivery Room Air Capillary Refill : Less Than 3 Seconds Height/Weight/BMI Height: 5'0" Weight: 130lbs. oz. 58.511446ah; 27.00 BMI Method:Stated General Appearance: WD/WN, mild distress HEENT: PERRL/EOMI, normal ENT inspection Neck: normal inspection Respiratory: lungs clear, normal breath sounds, no respiratory distress Cardiovascular: regular rate, rhythm, no edema, no murmur Gastrointestinal: normal bowel sounds, soft, tenderness (In the suprapubic region, right more intense than left), other (Tenderness to percussion. Rovsing negative. 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, no motor/sensory deficits, alert, normal mood/affect, oriented x 3 Skin: normal color, warm/dry Progress/Results/Core Measures Results/Orders Lab Results Laboratory Tests Test 09/02/20 15:03 09/02/20 15:13 Range/Units White Blood Count 7.8 4.3-11.0 10^3/uL Red Blood Count 4.24 3.80-5.11 10^6/uL Hemoglobin 11.2 L 11.5-16.0 g/dL Hematocrit 36 35-52 % Mean Corpuscular Volume 84 80-99 fL Mean Corpuscular Hemoglobin 26 25-34 pg Mean Corpuscular Hemoglobin Concent 31 L 32-36 g/dL Red Cell Distribution Width 15.2 H 10.0-14.5 % Platelet Count 423 H 130-400 10^3/uL Mean Platelet Volume 8.3 L 9.0-12.2 fL Immature Granulocyte % (Auto) 0 % Neutrophils (%) (Auto) 83 H 42-75 % Lymphocytes (%) (Auto) 11 L 12-44 % Monocytes (%) (Auto) 4 0-12 % Eosinophils (%) (Auto) 1 0-10 % Basophils (%) (Auto) 0 0-10 % Neutrophils # (Auto) 6.5 1.8-7.8 X 10^3 Lymphocytes # (Auto) 0.9 L 1.0-4.0 X 10^3 Monocytes # (Auto) 0.3 0.0-1.0 X 10^3 Eosinophils # (Auto) 0.1 0.0-0.3 10^3/uL Basophils # (Auto) 0.0 0.0-0.1 10^3/uL Immature Granulocyte # (Auto) 0.0 0.0-0.1 10^3/uL Sodium Level 137 135-145 MMOL/L Potassium Level 3.5 L 3.6-5.0 MMOL/L Chloride Level 103 98-107 MMOL/L Carbon Dioxide Level 21 21-32 MMOL/L Anion Gap 13 5-14 MMOL/L Blood Urea Nitrogen 13 7-18 MG/DL Creatinine 0.75 0.60-1.30 MG/DL Estimat Glomerular Filtration Rate > 60 BUN/Creatinine Ratio 17 Glucose Level 99 70-105 MG/DL Calcium Level 8.5 8.5-10.1 MG/DL Corrected Calcium 8.6 8.5-10.1 MG/DL Total Bilirubin 0.5 0.1-1.0 MG/DL Aspartate Amino Transf (AST/SGOT) 16 5-34 U/L Alanine Aminotransferase (ALT/SGPT) 8 0-55 U/L Alkaline Phosphatase 62 40-136 U/L C-Reactive Protein High Sensitivity 4.01 H 0.00-0.50 MG/DL Total Protein 6.9 6.4-8.2 GM/DL Albumin 3.9 3.2-4.5 GM/DL Lipase 7 L 8-78 U/L Serum Test, Qualitative NEGATIVE NEGATIVE Urine Color YELLOW Urine Clarity SL CLOUDY Urine pH 6.0 5-9 Urine Specific [place] >=1.030 1.016-1.022 Urine Protein TRACE H NEGATIVE Urine Glucose (UA) NEGATIVE NEGATIVE Urine Ketones 1+ H NEGATIVE Urine Nitrite POSITIVE H NEGATIVE Urine Bilirubin NEGATIVE NEGATIVE Urine Urobilinogen 0.2 < = 1.0 MG/DL Urine Leukocyte Esterase TRACE H NEGATIVE Urine RBC (Auto) 1+ H NEGATIVE Urine RBC NONE /HPF Urine WBC 10-25 H /HPF Urine Squamous Epithelial Cells 10-25 H /HPF Urine Crystals NONE /LPF Urine Bacteria LARGE H /HPF Urine Casts NONE /LPF Urine Mucus NEGATIVE /LPF Urine Culture Indicated YES My Orders Orders - BENITO BAPTISTE MD Cbc With Automated Diff (09/02/20 14:17) Comprehensive Metabolic Panel (09/02/20 14:17) Hs C Reactive Protein (09/02/20 14:17) Hcg,Qualitative Serum (09/02/20 14:17) Lipase (09/02/20 14:17) Ua Culture If Indicated (09/02/20 14:17) Ed Iv/Invasive Line Start (09/02/20 14:17) Lactated Ringers (Lr 1000 Ml Iv Solution (09/02/20 14:30) Ondansetron Injection (Zofran Injectio (09/02/20 14:30) Fentanyl Inj (Sublimaze Injection) (09/02/20 14:30) Urine Culture (09/02/20 15:13) Ct Abd/Pelvis Wo(Kidney Stone) (09/02/20 15:37) Ceftriaxone For Iv Use (Rocephin For I (09/02/20 16:30) Ketorolac Injection (Toradol Injection) (09/02/20 16:30) Ceftriaxone For Iv Use (Rocephin For I (09/02/20 16:30) Medications Given in ED Current Medications Medications Dose Ordered Sig/Anneliese Route Start Time Stop Time Status Last Admin Dose Admin Ceftriaxone Sodium 1000 mg/ Sterile Water 10 ml @ 200 mls/hr ONCE ONCE IV 09/02/20 16:30 09/02/20 16:32 DC 09/02/20 16:25 200 MLS/HR Fentanyl Citrate 75 mcg ONCE ONCE IVP 09/02/20 14:30 09/02/20 14:31 DC 09/02/20 14:49 75 MCG Ketorolac Tromethamine 30 mg ONCE ONCE IVP 09/02/20 16:30 09/02/20 16:31 DC 09/02/20 16:29 30 MG Lactated Ringer's 1,000 ml @ 0 mls/hr Q0M ONCE IV 09/02/20 14:30 09/02/20 14:31 DC 09/02/20 14:47 1,000 MLS/HR Ondansetron HCl 8 mg ONCE ONCE IVP 09/02/20 14:30 09/02/20 14:31 DC 09/02/20 14:49 8 MG Vital Signs/I&O 09/02/20 09/02/20 14:10 16:45 Temp 37.0 Pulse 97 92 Resp 16 14 B/P (MAP) 128/88 (101) 117/79 Pulse Ox 95 98 O2 Delivery Room Air Room Air Blood Pressure Mean: 101 Progress Progress Note : Time: 18:57 Progress Note Patient was initially treated with Zofran, fentanyl, and IV fluids. Work-up revealed urinary tract infection. CT stone search was obtained to rule out ureteral stone as source of infection and pain. No stone was identified. Appendix was not visualized but there were no secondary signs of appendicitis. Patient was offered a contrast study to follow this noncontrast study as a means for further evaluation. She declines at this time. She would like to treat the UTI and return if symptoms worsen. She was given a dose of Rocephin for initial antibiotic therapy and a dose of Toradol for further pain control. See discharge instructions for further information. Departure Impression Primary Impression: Lower abdominal pain Additional Impression: Urinary tract infection Qualified Codes: N39.0 - Urinary tract infection, site not specified Disposition: 01 HOME, SELF-CARE Condition: Improved Departure-Patient Inst. Decision time for Depature: 16:28 Referrals: NO,LOCAL PHYSICIAN (PCP/Family) Primary Care Physician Patient Instructions: Severe Abdominal Pain, Adult (DC), Urinary Tract Infection, Adult (DC) Add. Discharge Instructions: You may take Tylenol (acetaminophen) and/or ibuprofen for pain. Pyridium should also help numb up your bladder and treat pain. This medication may change your urine to a reddish or orange color. Do not be alarmed by this color change. Zofran (ondansetron) has been prescribed for nausea and vomiting. Drink plenty of clear liquids to help flush out your urinary tract. Complete your antibiotics as prescribed. Call with questions or concerns. Return to the ER if you have worsening symptoms or develop new symptoms such as fever, vomiting, etc. All discharge instructions reviewed with patient and/or family. Voiced understanding. Scripts Ondansetron (Ondansetron Odt) 4 Mg Tab.rapdis 4 MG SL Q4H PRN for NAUSEA/VOMITING, #10 TAB Prov: BENITO BAPTISTE MD 09/02/20 Phenazopyridine HCl (Pyridium) 200 Mg Tablet 1 TAB PO TID PRN for PAIN-MODERATE (5-7), #10 TAB Prov: BENITO BAPTISTE MD 09/02/20 Cephalexin (Cephalexin) 500 Mg Tablet 500 MG PO TID, #20 TAB Prov: BENITO BAPTISTE MD 09/02/20 BENITO BAPTISTE MD September 02, 2020 16:32
[2020-09-02 16:45] VITALS: BP 117/79
== END 2020-09-02 16:46 | disposition home or self-care (01) ==
LOC: EDUNIT# 14:00 → ER 14:02
DX: R10.30 Lower abdominal pain, unspecified (principal); N39.0 Urinary tract infection, site not specified; F17.210 Nicotine dependence, cigarettes, uncomplicated
CPT/HCPCS: 36415; 74176; 80053; 81000; 83690; 84703; 85025; 86141; 87077; 87088; 87186